=== PATIENT | female | born 2005 | race Two or more races ===

== ENCOUNTER 2024-12-02 01:40 | Emergency (ER) | payer BC, SELFPAY ==
[2024-12-02 01:41] VITALS: BMI 27.1
[2024-12-02 02:03] VITALS: BP 131/85; PULSE 96; RESP 18; TEMP 37.3; O2SAT 97
[2024-12-02] MEDS: ONDANSETRON ODT 4 MG TABRAP PO (02:36)
[2024-12-02] MEDS: DEXAMETHASONE SOD PHOS INJ 10 MG/ML VIAL PO (02:36)
[2024-12-02 04:14] VITALS: BP 120/76; PULSE 76; RESP 16; TEMP 36.7; O2SAT 98
--- NOTE | 2024-12-02 05:38 | PD.EDURI ---
Upper Respiratory Inf. RME/HPI General Chief Complaint: Flu Like Symptoms Stated Complaint: COUGHING/SORE THROAT X 3DAYS Time Seen by Provider: 12/02/24 02:25 Arrival date/time: 12/02/24 01:40 19F with no significant PMH presents to ED with 3 days of cough and sore throat. Patient went to PCP who gave her a Z-kameron w/o relief. Sometimes cough is so bad she has N/V. Limitations: no limitations Related Data Previous Rx's ?Medication ?Instructions ?Recorded amoxicillin 500 mg-potassium 1 tab PO BID #18 tabs 01/14/23 clavulanate 125 mg tablet (Augmentin) Allergies Allergy/AdvReac Type Severity Reaction Status Date / Time No Known Allergies Allergy Verified 01/13/23 23:14 Review of Systems Review of Systems Systems Reviewed: All systems reviewed, normal except as documented Constitutional Constitutional: Reports system reviewed and no additional complaints, except as documented, Denies fever(s) and Denies headache(s) ENT Ears, Nose, Mouth, and Throat: Reports as per HPI, Denies disequilibrium, Denies headache(s) and Reports sore throat Cardiovascular Cardiovascular: Reports system reviewed and no additional complaints, except as documented, Denies chest pain and Denies dyspnea Respiratory Respiratory: Reports system reviewed and no additional complaints, except as documented, Reports as per HPI, Reports cough and Denies dyspnea Gastrointestinal Gastrointestinal: Reports system reviewed and no additional complaints, except as documented, Reports as per HPI, Denies abdominal pain, Reports nausea and Reports vomiting Neurologic Neurologic: Reports system reviewed and no additional complaints, except as documented, Denies confusion, Denies disequilibrium and Denies headache(s) Psychiatric Psychiatric: Denies confusion Past Medical History Past Medical History CARDIAC: Negative Cardiac Disorders or Congestive Heart Failure RESPIRATORY: Negative Chronic Obstructive Pulmonary Disease (COPD) or Asthma GENITOURINARY: Negative Renal Disease ENDOCRINE: Negative Diabetes Mellitus Type 1 or Diabetes Mellitus Type 2 HEMATOLOGIC: Negative Sickle Cell Disease OTHER HISTORY: Negative Hospitalization or Blood Transfusions Social History SMOKING STATUS: Never smoker SUBSTANCE USE: does not use ED Exam General Limitations: Present no limitations General appearance: Present alert and in no apparent distress Head Head exam: Present atraumatic Eye Eye exam: Present normal appearance, PERRL and EOMI ENT ENT exam: Present normal exam, normal oropharynx and mucous membranes moist Neck Neck exam: Present normal inspection, full ROM and trachea midline Chest Chest inspection: Present normal inspection and symmetric chest wall rise Respiratory Respiratory exam: Present normal lung sounds bilaterally Cardiovascular Cardiovascular exam: Present regular rate, normal rhythm and normal heart sounds Abdominal Exam Abdominal exam: Present soft and normal bowel sounds Extremities Exam Extremities exam: Present normal inspection and full ROM Back Exam Back exam: Present normal inspection and full ROM Neurological Exam Neurological exam: Present alert, oriented X3 and CN II-XII intact Psychiatric Psychiatric exam: Present normal affect and normal mood Skin Skin exam: Present warm, dry, intact and normal color Course Quality Measures none Orders Category Date Time Status Bedside Influenza A&B Antigen Test NOW Care 12/02/24 02:25 Completed Dexamethasone Inj [Decadron Inj] Med 12/02/24 02:25 Discontinued 10 mg PO X1 ONE Ondansetron Odt [Zofran Odt] Med 12/02/24 02:25 Discontinued 4 mg PO X1 ONE Vital Signs Vital signs: Vital Signs Temperature 99.2 F 12/02/24 02:03 Pulse Rate 96 12/02/24 02:03 Respiratory Rate 18 12/02/24 02:03 Blood Pressure 131/85 H 12/02/24 02:03 Pulse Oximetry (%) 97 12/02/24 02:03 Oxygen Delivery Method Room Air 12/02/24 02:03 O2 at 97% on RA and WNLs Upper Respiratory Infection MDM Narrative MDM Narrative:: 19F with no significant PMH presents to ED with 3 days of cough and sore throat. Patient went to PCP who gave her a Z-kameron w/o relief. Sometimes cough is so bad she has N/V. Physical exam reveals clear NT and lungs. Normal WOB. Patient is afebrile, calm, and alert. Swabs neg. Meds improved symptoms. Likely viral URI. Patient data External records reviewed:: [facility] previous records Clinical information provided by:: patient Social determinants that could affect healthcare access:: none Patient has the following chronic illnesses:: none How is presenting disease/condition affected by chronic disease/condition?: no chronic disease Evaluation data The following diagnostics were reviewed and interpreted by me:: lab results Lab and/or radiology exams considered but not ordered:: ordered Interpretation Summary: above Medications / Prescriptions Medications or Prescriptions considered but not ordered:: ordered Medication administrations:: Medication Administration History Discontinued Medications Dexamethasone Sodium Phosphate (Dexamethasone Sod Phos Inj 10 Mg/Ml Vial) 10 mg PO X1 ONE Stop: 12/02/24 02:26 Last Admin: 12/02/24 02:36 Dose: 10 mg Documented By: ARETHA Ondansetron HCl (Ondansetron Odt 4 Mg Tabrap) 4 mg PO X1 ONE; Protocol Stop: 12/02/24 02:26 Last Admin: 12/02/24 02:36 Dose: 4 mg Documented By: ARETHA above Consultations Consultation(s) initiated? (list below): No Diagnosis Upper Respiratory Differential Diagnosis: upper respiratory infection, croup, otitis media, sinusitis, viral infection, bronchitis, influenza and pharyngitis Most likely diagnosis given after review of the tests above:: URI Admission Indicated Admission indicated?: not indicated Admission Request Was there a request for admission?: No Disposition Plan Disposition Plan: Discharge Discharge Attestation Discharge Attestation: The patient and all family members were given an opportunity to ask questions and understood the discharge instructions. Discharge instructions specifically effects, indications for sooner follow up or return to the emergency department, and the expected course of current diagnosis. Patient condition: Stable Discharge Plan Plan Patient Disposition: HOME (Self Care) Disposition Comment: Stable Prescriptions/Referrals Prescriptions/Med Rec: No Action amoxicillin-pot clavulanate [Augmentin] 500-125 mg tablet 1 tab PO BID Qty: 18 0RF Referrals: Jorge (PCP),MD Georgi [Primary Care Provider] - In 1 week Problem List Clinical Impression: Upper respiratory infection Patient/Caregiver Discharge Instructions Education Materials: ED URI, Viral, No Abx (Adult) Additional Instructions: Please follow-up with PCP within 24-48 hours and return immediately if symptoms worsen. Ibuprofen/Tylenol can be used simultaneously for greater fever/pain control. Benadryl is good for cough, congestion, and sleep. Lots of nasal suctioning. Keep hydrated. Advance diet as tolerated. Print Language: Ecuadorean Stand Alone Forms: Patient Portal Info Letter PA/DARYL Supervising Physician VIIVAN/DARYL Supervising Physician: Dr. Bal
== END 2024-12-02 04:16 | disposition home or self-care (01) ==
PROVIDERS: Emergency Provider Emergency Medicine; PCP Family Medicine
DX: J06.9 Acute upper respiratory infection, unspecified (principal)
CPT/HCPCS: 87400; 99283; J1100; Q0162

== ENCOUNTER → 2025-03-29 | Outpatient (CLI) | payer BC, SELFPAY ==
[2025-03-29 10:06] LABS: HCG,Qualitative Serum Positive
[2025-03-29 10:14] LABS: Syphilis Nonreactive (Nonreactive)
[2025-03-29 10:26] LABS: Beta HCG,Quantitative 17135 mIU/mL (<5.0)
[2025-03-29 10:31] LABS: Hepatitis A Antibody IgM Non Reactive (Non React); Hepatitis B Core Antibody IgM Non Reactive (Non React); Hepatitis B Surface Antigen Non Reactive (Non React); Hepatitis C Antibody Non Reactive (Non React)
[2025-03-29 13:02] LABS: Chlamydia trachomatis PCR Negative (Not Detect); Neisseria Gonorrhoeae DNA PCR Negative (Not Detect); Trichomonas Negative (Negative)
[2025-03-29 13:33] LABS: HIV (1&2) Antibody Rapid Non-Reactive
== END | disposition home or self-care (01) ==
PROVIDERS: PCP Nurse Practitioner Family; Referring Provider Nurse Practitioner Family; Visit Provider Nurse Practitioner Family
DX: N92.1 Excessive and frequent menstruation with irregular cycle (principal); N91.2 Amenorrhea, unspecified; Z72.51 High risk heterosexual behavior
CPT/HCPCS: 36415; 80074; 84702; 84703; 86703; 86780; 87491; 87591; 87661

== ENCOUNTER 2025-04-11 14:44 | Outpatient (AMB) | payer BC, SELFPAY ==
[2025-04-11 15:39] VITALS: BP 113/76; PULSE 50; RESP 14; TEMP 36.7; O2SAT 98; BMI 29.2
--- NOTE | 2025-04-11 15:39 | OBCLNT_ITS ---
Vital Signs 04/11/25 15:39 Height 1.65 m Height Method Stated Weight 79.832 kg Weight Measurement Method Standing Scale BMI 29.2 BP 113/76 Blood Pressure Source Automatic Cuff Blood Pressure Location Left Upper Arm Position Sitting Respiration 14 Pulse 50 L Pulse Source Monitor Temp 98.1 F Temp Source Oral Pulse Oximetry (%) 98 Oxygen Delivery Method Room Air Allergies/Home Meds Allergies & Medications Allergies No Known Allergies Allergy (Verified 04/11/25 15:40) Medication Reconciliation No Known Home Medications 04/11/25 [History Confirmed 04/11/25] Intake Visit Data Collection New Patient or Established: Established Patient (seen at [facility] within 3 years) Reason for Visit:: INITIAL CARE Seen by Clinical Staff ONLY (RN/MA): No Plum Packer Required: No Do You Feel Safe at Home: Yes Authorities Contacted: N/A PCP or OBGYN visit in last 3 months: Yes Hx Now: Yes Are you currently on any form of Control: No Last menstrual period: 02/09/25 Pain Present Currently: No Pain Scale Used: Bravo-Blackburn/Numerical Pain scale:: 0 Smoking Status Smoking Status: Former smoker Questionnaires Covid-19 Vaccine Questionnaire Has patient been vacinated for Covid-19 Have you been vacinated for Covid-19: Yes PHQ-9 PHQ-2 Over the last 2 weeks, how often have you been bothered by any of the following problems? 1. Little interest or pleasure in doing things: not at all 2. Feeling down, depressed, or hopeless: not at all Total score: 0 PHQ-9 3. Trouble falling or staying asleep, or sleeping too much: Not at all 4. Feeling tired or having little energy: Not at all 5. Poor appetite or overeating: Not at all 6. Feeling bad about yourself - or that you are a failure or have let yourself or your family down: Not at all 7. Trouble concentrating on things, such as reading the newspaper or watching television: Not at all 8. Moving or speaking so slowly that other people could have noticed? - Or the opposite - being so fidgety or restless that you have been moving around a lot more than usual: not at all 9. Thoughts that you would be better off or of hurting yourself in some way: Not at all Total score: 0 Source: Developed by Drs. Antony Ricardo, Emma Gee, Rk De León and colleagues, with an educational isabelle from [employer]. Depression screen completed yes Social History Living Situation History Marital Status: Single Lives With: Family Housing: House Housing Other:: Attending university Tobacco History Smoking Status: Former smoker Second Hand Smoke Exposure: Yes Alcohol History Alcohol Intake: Former Alcohol Intake Frequency: holidays/special occasions only Substance Use History Substance Use: MARIJUANA Domestic Abuse History Do You Feel Safe at Home: Yes History of Present Illness HPI Narrative The patient is a 19-year-old G1, P0 who presents as a new OB. First she was not sure she went to continue the and took a Plan B. She is present with her boyfriend. They do want to continue the . 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 Additional Operations/Hospitalizations (year & reason): Denies Other Relevant History: Anemia Anxiety Headaches OB Initial Visit Menstrual History Menstrual reliability: definite Flow: normal Menstrual regularity: regular Monthly: Yes Age at menarche: 10 On control pills at conception: No Date of positive home test: 03/25/25 Associated symptoms (LMP): Reports nausea, fatigue and breast tenderness Details: LMP 02/09/2025 OB History : 1 Infection History & Risk Evaluation History of STDs: none Genetic Screening & History Genetic Screening/Teratology Counseling - Includes patient, baby's father, or anyone in either family with: 1. Patient's age 35 years or older as of estimated date of delivery: No 2. Thalassemia (American, [place] Citizen, Mediterranean, or Background); MCV less than 80: No 3. Neural Tube Defect (Meningomyelocele, Spina Bifida, or Anencephaly): No 4. Congenital Heart Defect: No 5. Down Syndrome: Yes (MATERNAL UNCLE) 6. Silviano-Sachs (Ashkenazi Rastafarian, Cajun, Malay [place]): No 7. Clementina Disease (Ashkenazi Rastafarian): No 8. Familial Dysautonomia (Ashkenazi Rastafarian): No 9. Sickle Cell Disease or Trait (): No 10. Hemophilia or other blood disorders: No 11. Muscular Dystrophy: No 12. Cystic Fibrosis: No 13. [place]'s Chorea: No 14. Mental Retardation/Autism: Yes (AUTISM MATERNAL COUSIN) 15. Other inherited genetic or chromosomal disorder: No 16. Maternal Metabolic Disorder (EG,TYPE 1 Diabetes, PKU): No 17. Patient or baby's father had a child with defects not listed above: No 18. Recurrent loss or a stillbirth: No 19. Medications (including supplements, vitamins, herbs or otc drugs)/illicit/recreational drugs/alcohol since last menstrual period: No 20. Any other: No Comments/Counseling: Offered NIPT for next visit Infection History 1. Live with someone with TB or exposed to TB: No 2. Rash or viral illness since last menstrual period: No 3. Hepatitis B,C: No Other (see comments) Source: [employer] Review of Systems Review of Systems Narrative Review of Systems: Breast tenderness, fatigue, mild nausea Constitutional Constitutional: Reports fatigue Gastrointestinal Gastrointestinal: Reports nausea Endocrine Endocrine: Reports fatigue Exam Narrative Physical exam: Pap and pelvic deferred. Last Pap was January 2024. No history of abnormal Paps. General Limitations: no limitations General Appearance: alert, in no apparent distress, cooperative and well groomed Neck Neck exam: Present normal inspection, full ROM and trachea midline Chest Chest inspection: Present normal inspection and symmetric chest wall rise Resp Respiratory exam: Present normal lung sounds bilaterally Card Cardiovascular exam: Present regular rate, normal rhythm and normal heart sounds Abdominal Abdominal exam: Present soft and normal bowel sounds Extremities Extremities exam: Present normal inspection and full ROM Psych Psychiatric exam: Present normal affect and normal mood Skin Skin exam: Present warm, dry, intact and normal color Office Procedures OB Clinic LOC & Office Proc's Nursing/Assessment Patient Status: Established Patient OB Clinic Nursing Assessment: Medication Reconciliation, Update PMH in EMR and Vital Signs OB Clinic Coordination of Care: Complex Care and Chronic Disease 1-5, Consent,records obtained, informed consent, Education Simp Pt/Fam, 1 Ins Authorization, Lab and Imaging orders, Results/Orders obtained and Staff clarify orders Special Needs: Heart tones Established Patient Charge Established Patient Point Assignment: 150 Established Patient Point Charge: EP Level 4 (120-155) Assessment & Plan Diagnosis / Problem List (1) : Status: Acute Qualifiers: Weeks of gestation: 8 weeks Qualified Code(s): Z3A.08 - 8 weeks gestation of Plan: labs ordered. Discussed NIPT. Patient has a history of marijuana use encouraged no marijuana use during . Encouraged reading about and getting a book called what to expect when you are expecting. Encouraged healthy eating and taking care of herself with adequate sleep. Patient will take vitamins. Will order official ultrasound. Patient will follow-up in 4 weeks. Additional Plan Follow Up: 4 Weeks
== END 2025-04-11 16:03 | disposition home or self-care (01) ==
LOC: HODSOBC 14:44
PROVIDERS: Supervising Provider Obstetrics & Gynecology; Visit Provider Obstetrics & Gynecology
DX: O09.891 Supervision of other high risk pregnancies, first trimester (principal); F12.90 Cannabis use, unspecified, uncomplicated; O99.321 Drug use complicating pregnancy, first trimester; Z3A.08 8 weeks gestation of pregnancy; Z87.891 Personal history of nicotine dependence
CPT/HCPCS: 99214; G0463

== ENCOUNTER → 2025-04-26 | Outpatient (CLI) | payer BC, MEDICAID, SELFPAY ==
--- NOTE | 2025-04-26 | XR_ITS ---
Examination: Complete OB ultrasound, less than 14 weeks, transabdominal Date and time of exam: April 26 thousand 25, 1302 hrs. Indications: Clinical diagnosis threatened portion Technique: Obstetrical ultrasound images less than 14 weeks performed via transabdominal imaging Findings: A normal shaped single intrauterine gestation is present in the uterus. CRL 3.3 cm corresponds to 10 weeks 2 days gestational age Cardiac motion 166 BPM Ultrasonographic survey of visible and placental structures unremarkable. Amniotic fluid volume appears appropriate for this estimated gestational age. Right ovary 2.6 cm arterial flow. Left ovary 2.5 cm arterial flow Impression: Viable intrauterine gestation 10 weeks 2 days.
--- NOTE | 2025-04-26 | XR_ITS ---
Examination: OB Transvaginal ultrasound of the pelvis, complete Technique: Transvaginal sonographic images pelvis performed using farris scale imaging Exam date and time: April 26, 2025, 13 4 hours Indications: Diagnosis threatened . Findings: Uterus 10.9 cm pole 3.3 cm corresponds to 10 weeks 2 days gestational age. Cardiac motion 166 BPM. Right ovary 3.7 cm arterial flow. Left ovary 2.3 cm arterial flow Impression: Viable intrauterine gestation 10 weeks 2 days.
== END | disposition home or self-care (01) ==
PROVIDERS: PCP Family Medicine; Referring Provider Obstetrics & Gynecology; Visit Provider Obstetrics & Gynecology
DX: O20.0 Threatened abortion (principal); Z3A.10 10 weeks gestation of pregnancy
CPT/HCPCS: 76801; 76817

== ENCOUNTER 2025-05-20 14:14 | Outpatient (AMB) | payer BC, MEDICAID, SELFPAY ==
[2025-05-20 14:44] VITALS: BP 126/84; PULSE 68; RESP 14; TEMP 36.2; O2SAT 98; BMI 29.8
--- NOTE | 2025-05-20 14:44 | AMB.OBVISIT ---
Vital Signs 05/20/25 14:44 Height 1.65 m Height Method Measured Weight 81.25 kg Weight Measurement Method Standing Scale BMI 29.8 BP 126/84 Blood Pressure Source Automatic Cuff Blood Pressure Location Left Upper Arm Position Sitting Respiration 14 Pulse 68 Pulse Source Monitor Temp 97.1 F Temp Source Oral Pulse Oximetry (%) 98 Oxygen Delivery Method Room Air Allergies/Home Meds Allergies & Medications Allergies No Known Allergies Allergy (Verified 05/20/25 14:45) Medication Reconciliation No Known Home Medications 04/11/25 [History Confirmed 05/20/25] Intake Visit Data Collection New Patient or Established: Established Patient (seen at [facility] within 3 years) Reason for Visit:: CARE Seen by Clinical Staff ONLY (RN/MA): No Boiler Tender Required: No Do You Feel Safe at Home: Yes Authorities Contacted: N/A PCP or OBGYN visit in last 3 months: Yes Hx Now: Yes Are you currently on any form of Control: No Pain Present Currently: No Pain Scale Used: Bravo-Blackburn/Numerical Pain scale:: 0 Smoking Status Smoking Status: Former smoker Questionnaires Covid-19 Vaccine Questionnaire Has patient been vacinated for Covid-19 Have you been vacinated for Covid-19: No PHQ-9 PHQ-2 Over the last 2 weeks, how often have you been bothered by any of the following problems? 1. Little interest or pleasure in doing things: not at all 2. Feeling down, depressed, or hopeless: not at all Total score: 0 PHQ-9 3. Trouble falling or staying asleep, or sleeping too much: Not at all 4. Feeling tired or having little energy: Not at all 5. Poor appetite or overeating: Not at all 6. Feeling bad about yourself - or that you are a failure or have let yourself or your family down: Not at all 7. Trouble concentrating on things, such as reading the newspaper or watching television: Not at all 8. Moving or speaking so slowly that other people could have noticed? - Or the opposite - being so fidgety or restless that you have been moving around a lot more than usual: not at all 9. Thoughts that you would be better off or of hurting yourself in some way: Not at all Total score: 0 Source: Developed by Emma CannonW. Gerard, Rk De León and colleagues, with an educational isabelle from [employer]. 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 This was an unexpected but her and her boyfriend are excited. OB Ultrasound Indication Indication: Size and dates OB Ultrasound Ultrasound technique: transabdominal Gestational sac assessment: Presence, location, size, shape: Live intrauterine measuring 13 weeks with cardiac activity noted at 245 bpm Care OB Visit Log OB Flowsheet Initial Weight: Not Recorded Date <del>?</del> EGA Weight BP Alb Glu CTX Pres Fundal ht FHR Mov Dilation Station Effacement Hx Notes Visit Note 05/20/25 <del>?</del> 14w 2d 81.25 kg 126/84 14 147 Patient presents with her mother and her boyfriend. No bleeding or pressure. They are having a gender reveal green party in about 3 weeks. Normal NIPT and all labs reviewed with the patient. All questions answered. ILDA Calculator Estimated Delivery Date Method Current WG Current Estimate 11/16/25 LMP (Certain) 14w 2d Other Estimates 11/20/25 Ultrasound #1 13w 5d Expected Delivery Route/Plan 19-year-old G1, P0 Specific Issue/Plans labs [facility]: AB+ antibody/ negative /RPR nonreactive/hepatitis B surface antigen negative /rubella immune/ RPR nonreactive/ hepatitis C negative /HIV negative/ GC negative/ Chlamydia negative/ hemoglobin 14.2 hematocrit 43.2 Urine culture negative. NIPT 46 XY. SMA negative. Cystic fibrosis negative. Notes Visit Date: 05/20/25 Last Updated by: Hortencia Levin (OB Clinic)MD Patient denies bleeding. No dysuria. She is getting her energy back. Gender is a surprise for now. Normal NIPT. She had an ultrasound at [facility] 04/26/2025 revealing a live IUP measuring 10 weeks 2 days with an EDC of 11/20/2025. Office Procedures OB Clinic LOC & Office Proc's Nursing/Assessment Patient Status: Established Patient OB Clinic Nursing Assessment: Medication Reconciliation, Update PMH in EMR and Vital Signs OB Clinic Coordination of Care: Complex Care and Chronic Disease 1-5, Consent,records obtained, informed consent, Education Simp Pt/Fam, Lab and Imaging orders, Results/Orders obtained and Staff clarify orders Special Needs: Heart tones Established Patient Charge Established Patient Point Assignment: 135 Established Patient Point Charge: EP Level 4 (120-155) Assessment & Plan Diagnosis / Problem List (1) : Status: Acute Qualifiers: Weeks of gestation: 13 weeks Qualified Code(s): Z3A.13 - 13 weeks gestation of
== END 2025-05-20 16:02 | disposition home or self-care (01) ==
LOC: HODSOBC 14:14
PROVIDERS: PCP Family Medicine; Referring Provider Family Medicine; Supervising Provider Obstetrics & Gynecology; Visit Provider Obstetrics & Gynecology
DX: Z34.02 Encounter for supervision of normal first pregnancy, second trimester (principal); Z3A.14 14 weeks gestation of pregnancy; Z87.891 Personal history of nicotine dependence
CPT/HCPCS: 99214; G0463

== ENCOUNTER 2025-06-17 14:56 | Outpatient (AMB) | payer BC, MEDICAID, SELFPAY ==
[2025-06-17 15:11] VITALS: BP 119/82; PULSE 77; RESP 14; TEMP 36.5; O2SAT 98; BMI 30.4
--- NOTE | 2025-06-17 15:11 | OBCLNT_ITS ---
Vital Signs 06/17/25 15:11 Height 1.65 m Height Method Stated Weight 83.064 kg Weight Measurement Method Standing Scale BMI 30.4 BP 119/82 Blood Pressure Source Automatic Cuff Blood Pressure Location Left Upper Arm Position Sitting Respiration 14 Pulse 77 Pulse Source Monitor Temp 97.7 F Temp Source Oral Pulse Oximetry (%) 98 Oxygen Delivery Method Room Air Allergies/Home Meds Allergies & Medications Allergies No Known Allergies Allergy (Verified 06/17/25 15:12) Medication Reconciliation No Known Home Medications 04/11/25 [History Confirmed 06/17/25] Intake Visit Data Collection New Patient or Established: Established Patient (seen at [facility] within 3 years) Reason for Visit:: CARE Seen by Clinical Staff ONLY (RN/MA): No 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: No Do You Feel Safe at Home: Yes Authorities Contacted: N/A PCP or OBGYN visit in last 3 months: Yes Hx Now: Yes Are you currently on any form of Control: No Pain Present Currently: Yes Pain Location: Abdomen (LOWER ABDOMEN) Pain Scale Used: Bravo-Blackburn/Numerical Pain scale:: 7 Smoking Status Smoking Status: Former smoker Immunizations Flu Vaccine in the Last 12 Months: No Flu Vaccine Exclusion Criteria: No Exclusion Criteria Questionnaires Covid-19 Vaccine Questionnaire Has patient been vacinated for Covid-19 Have you been vacinated for Covid-19: Yes PHQ-9 PHQ-2 Over the last 2 weeks, how often have you been bothered by any of the following problems? 1. Little interest or pleasure in doing things: not at all 2. Feeling down, depressed, or hopeless: not at all Total score: 0 PHQ-9 3. Trouble falling or staying asleep, or sleeping too much: Not at all 4. Feeling tired or having little energy: Not at all 5. Poor appetite or overeating: Not at all 6. Feeling bad about yourself - or that you are a failure or have let yourself or your family down: Not at all 7. Trouble concentrating on things, such as reading the newspaper or watching television: Not at all 8. Moving or speaking so slowly that other people could have noticed? - Or the opposite - being so fidgety or restless that you have been moving around a lot more than usual: not at all 9. Thoughts that you would be better off or of hurting yourself in some way: Not at all Total score: 0 Source: Developed by Drs. Antony Ricardo, Emma Gee, Rk De León and colleagues, with an educational isabelle from [employer]. 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 No bleeding or pressure. They are having a gender reveal democrat in about 3 weeks. Normal NIPT and all labs reviewed with the patient. All questions answered. 06/17/25 -?-?-?-?-?-?-?-?-?-?-?-?- 18w 2d 83.064 kg 119/82 18 145 active +Flutter, No VB or LOF Ordered SS at [facility] ILDA Calculator Estimated Delivery Date Method Current WG Current Estimate 11/16/25 LMP (Certain) 19w 0d Other Estimates 11/20/25 Ultrasound #1 18w 3d Expected Delivery Route/Plan 19-year-old G1, P0 Specific Issue/Plans labs [facility]: AB+ antibody/ negative /RPR nonreactive/hepatitis B surface antigen negative /rubella immune/ RPR nonreactive/ hepatitis C negative /HIV negative/ GC negative/ Chlamydia negative/ hemoglobin 14.2 hematocrit 43.2 Urine culture negative. NIPT 46 XY. SMA negative. Cystic fibrosis negative. Notes Visit Date: 06/17/25 Last Updated by: Hortencia Levin (OB Clinic)MD Ordered structural survey at [facility]. Doing well. Visit Date: 05/20/25 Last Updated by: Hortencia Levin (OB Clinic)MD Patient denies bleeding. No dysuria. She is getting her energy back. Gender is a surprise for now. Normal NIPT. She had an ultrasound at [facility] 04/26/2025 revealing a live IUP measuring 10 weeks 2 days with an EDC of 11/20/2025. Office Procedures OBC Clinic LOC & Office Proc's Nursing/Assessment Patient Status: Established Patient OB Clinic Nursing Assessment: Medication Reconciliation, Update PMH in EMR and Vital Signs OB Clinic Coordination of Care: Complex Care and Chronic Disease 1-5, Consent,records obtained, informed consent, Education Simp Pt/Fam, 1 Ins Authorization, Lab and Imaging orders, Results/Orders obtained and Staff clarify orders Special Needs: Heart tones Established Patient Charge Established Patient Point Assignment: 150 Established Patient Point Charge: EP Level 4 (120-155) Assessment & Plan Diagnosis / Problem List (1) : Status: Acute Qualifiers: Weeks of gestation: 18 weeks Qualified Code(s): Z3A.18 - 18 weeks gestation of Additional Plan Follow Up: 4 Weeks
== END 2025-06-17 16:00 | disposition home or self-care (01) ==
LOC: HODSOBC 14:56
PROVIDERS: PCP Family Medicine; Referring Provider Family Medicine; Supervising Provider Obstetrics & Gynecology; Visit Provider Obstetrics & Gynecology
DX: Z34.02 Encounter for supervision of normal first pregnancy, second trimester (principal); Z3A.18 18 weeks gestation of pregnancy
CPT/HCPCS: 99214; G0463

== ENCOUNTER 2025-07-21 11:16 | Outpatient (AMB) | payer BC, MEDICAID, SELFPAY ==
[2025-07-21 11:23] VITALS: BP 108/74; PULSE 86; RESP 16; TEMP 36.4; O2SAT 97; BMI 31.8
--- NOTE | 2025-07-21 11:23 | AMB.OBPNC ---
Vital Signs 07/21/25 11:23 Height 1.65 m Height Method Stated Weight 86.75 kg Weight Measurement Method Standing Scale BMI 31.8 BP 108/74 Blood Pressure Source Automatic Cuff Blood Pressure Location Right Upper Arm Position Sitting Respiration 16 Pulse 86 Pulse Source Monitor Temp 97.5 F Temp Source Temporal Artery Scan Pulse Oximetry (%) 97 Oxygen Delivery Method Room Air Allergies/Home Meds Allergies & Medications Allergies No Known Allergies Allergy (Verified 07/21/25 11:25) Medication Reconciliation vitamin-ferrous fumarate 28 mg iron-folic acid 800 mcg tablet ( Vitamins with Minerals) 1 tab PO QDAY #60 tabs 06/22/25 [Rx Confirmed 07/21/25] Immunizations Immunizations Flu Vaccine in the Last 12 Months: No Flu Vaccine Exclusion Criteria: Refused by Patient Care OB Visit Log OB Flowsheet Initial Weight: Not Recorded Date <del>?</del> EGA Weight BP Alb Glu CTX Pres Fundal ht FHR Mov Dilation Station Effacement Hx Notes Visit Note 05/20/25 <del>?</del> 14w 2d 81.25 kg 126/84 14 147 Patient presents with her mother and her boyfriend. No bleeding or pressure. They are having a gender reveal green party in about 3 weeks. Normal NIPT and all labs reviewed with the patient. All questions answered. 06/17/25 <del>?</del> 18w 2d 83.064 kg 119/82 18 145 active +Flutter, No VB or LOF Ordered SS at [facility] 07/21/25 <del>?</del> 23w 1d 86.75 kg 108/74 23 144 active Had a Us done 07/11/[address] [facility] and is appropriate ILDA Calculator Estimated Delivery Date Method Current WG Current Estimate 11/16/25 LMP (Certain) 23w 2d Other Estimates 11/20/25 Ultrasound #1 22w 5d Expected Delivery Route/Plan 19-year-old G1, P0 Specific Issue/Plans labs [facility]: AB+ antibody/ negative /RPR nonreactive/hepatitis B surface antigen negative /rubella immune/ RPR nonreactive/ hepatitis C negative /HIV negative/ GC negative/ Chlamydia negative/ hemoglobin 14.2 hematocrit 43.2 Urine culture negative. NIPT 46 XY. SMA negative. Cystic fibrosis negative. Notes Visit Date: 07/21/25 Last Updated by: Mya Lomeli MD she will take the CBC/ RPR and one hour GTT now to be done between 24 to 28 weeks she feels swollen in genital area with coitus nd also on sitting for long time and can use a belt/ support and also walk after sitting for 2 hours for 10 to 15 minutes she is wanting an anatomy scan and will order Visit Date: 06/17/25 Last Updated by: Hortencia Levin (OB Clinic)MD Ordered structural survey at [facility]. Doing well. Visit Date: 05/20/25 Last Updated by: Hortencia Levin (OB Clinic)MD Patient denies bleeding. No dysuria. She is getting her energy back. Gender is a surprise for now. Normal NIPT. She had an ultrasound at [facility] 04/26/2025 revealing a live IUP measuring 10 weeks 2 days with an EDC of 11/20/2025. Office Procedures OBC Clinic LOC & Office Proc's Nursing/Assessment Patient Status: Established Patient OB Clinic Nursing Assessment: Medication Reconciliation, Update PMH in EMR and Vital Signs OB Clinic Coordination of Care: Complex Care and Chronic Disease 1-5, Education Complex Pt/Fam, Consent,records obtained, informed consent, Lab and Imaging orders, Results/Orders obtained and Staff clarify orders Special Needs: Heart tones Established Patient Charge Established Patient Point Assignment: 140 Established Patient Point Charge: EP Level 4 (120-155) Assessment & Plan Diagnosis / Problem List (1) : Status: Acute Qualifiers: Weeks of gestation: 18 weeks Qualified Code(s): Z3A.18 - 18 weeks gestation of Plan: at 23 .1 weeks with normal PNC (2) Genital swelling: Status: Acute Plan: not constant , related to activity / maternity belt/ walking advised (3) 23 weeks gestation of : Status: Acute Additional Plan CBc/ RPR/One hour GTT ordered / at 23.1 weeks labs [facility]: AB+ antibody/ negative /RPR nonreactive/hepatitis B surface antigen negative /rubella immune/ RPR nonreactive/ hepatitis C negative /HIV negative/ GC negative/ Chlamydia negative/ hemoglobin 14.2 hematocrit 43.2 Urine culture negative. NIPT 46 XY. SMA negative. Cystic fibrosis negative. Follow Up: 4 Weeks
== END 2025-07-21 13:10 | disposition home or self-care (01) ==
LOC: HODSOBC 11:16
PROVIDERS: PCP Family Medicine; Referring Provider Family Medicine; Supervising Provider Obstetrics & Gynecology; Visit Provider Obstetrics & Gynecology
DX: O09.892 Supervision of other high risk pregnancies, second trimester (principal); O99.891 Other specified diseases and conditions complicating pregnancy; R22.9 Localized swelling, mass and lump, unspecified; Z3A.23 23 weeks gestation of pregnancy; Z28.21 Immunization not carried out because of patient refusal
CPT/HCPCS: 99214; G0463

== ENCOUNTER 2025-08-14 15:28 | Observation (INO) | payer BC, MEDICAID, SELFPAY ==
[2025-08-14] VITALS (19 sets, daily range): BP systolic 117; BP diastolic 75; PULSE 82–100; RESP 17–100; TEMP 36.9; O2SAT 98–100; BMI 33.3
--- NOTE | 2025-08-14 15:53 | XR_ITS ---
Examination: OB Transvaginal ultrasound of the pelvis, limited Technique: Transvaginal sonographic images pelvis performed using farris scale imaging Exam date and time: August 14, 2025, 1650 hours INDICATIONS: Labor evaluation today, pelvic cramping, unknown cervical length. FINDINGS: Cervix 4.2 cm closed IMPRESSION: Cervix 4.2 cm closed
[2025-08-14] MEDS: RINGERS LACTATED 1000 ML 1,000 ML 999 ML IV (16:10)
== END 2025-08-14 17:34 | disposition home or self-care (01) ==
PROVIDERS: Admitting Provider Obstetrics & Gynecology; PCP Obstetrics & Gynecology; Visit Provider Obstetrics & Gynecology
DX: O26.892 Other specified pregnancy related conditions, second trimester (principal); Z3A.26 26 weeks gestation of pregnancy; R10.9 Unspecified abdominal pain; M54.9 Dorsalgia, unspecified; R19.7 Diarrhea, unspecified
CPT/HCPCS: 59025; 59899; 76817; J7120

== ENCOUNTER 2025-08-16 15:26 | Outpatient (AMB) | payer BC, MEDICAID, SELFPAY ==
--- NOTE | 2025-08-16 15:28 | OBCLNT_ITS ---
Vital Signs 08/16/25 15:32 Height 1.63 m Height Method Stated Weight 88.224 kg Weight Measurement Method Standing Scale BMI 33.3 BP 116/81 Blood Pressure Source Automatic Cuff Blood Pressure Location Left Upper Arm Position Sitting Respiration 16 Pulse 82 Pulse Source Monitor Temp 97.7 F Temp Source Oral Pulse Oximetry (%) 99 Oxygen Delivery Method Room Air Allergies/Home Meds Allergies & Medications Allergies No Known Allergies Allergy (Verified 08/16/25 15:33) Medication Reconciliation vitamin-ferrous fumarate 28 mg iron-folic acid 800 mcg tablet ( Vitamins with Minerals) 1 tab PO QDAY #60 tabs 06/22/25 [Rx Confirmed 08/16/25] Immunizations Immunizations Flu Vaccine in the Last 12 Months: Yes Flu Vaccine Exclusion Criteria: Already Received Care OB Visit Log OB Flowsheet Initial Weight: Not Recorded Date -?-?-?-?-?-?-?-?-?-?-?-?- EGA Weight BP Alb Glu CTX Pres Fundal ht FHR Mov Dilation Station Effacement Hx Notes Visit Note 05/20/25 -?-?-?-?-?-?-?-?-?-?-?-?- 14w 2d 81.25 kg 126/84 14 147 Patient presents with her mother and her boyfriend. No bleeding or pressure. They are having a gender reveal republican in about 3 weeks. Normal NIPT and all labs reviewed with the patient. All questions answered. 06/17/25 -?-?-?-?-?-?-?-?-?-?-?-?- 18w 2d 83.064 kg 119/82 18 145 active +Flutter, No VB or LOF Ordered SS at [facility] 07/21/25 -?-?-?-?-?-?-?-?-?-?-?-?- 23w 1d 86.75 kg 108/74 23 144 active Had a Us done 07/11/2025 at [facility] and is appropriate 08/16/25 -?-?-?-?-?-?-?-?-?-?-?-?- 26w 6d 88.224 kg 116/81 28 145 active - Mandy Obando is a 1 para 0 at 26 weeks and 6 days gestation with an estimated due date of November 16, 2025, presenting for routine care. - This is her first visit with Dr. Espitia , having previously seen Dr. Levin and Dr. Lomeli. - She reports the has been goi ng really, really good overall with an active baby. - She denies contractions or other pregn grace-related issues. - She went to the emergency room a coupl e days ago for active diarrhea with associated cramping and fever. - She became dehydrated and received o ne and a half IV fluid bags. - She reports feeling absolutely bett er now that the illness has resolved. - She completed her glucose tolerance te st today at [facility]. - She reports taking her vitami ns regularly. - She describes staying physically activ e, moving around frequently without restrictions. - Await glucose test results from [facility], will call patient if abnormal - Referral for level 2 ultrasound in [place] with Dr. Farnsworth for detailed anatomy scan - Continue vitamins - Maintain physical activity with 10-15 minutes of active walking daily - Follow-up appointment in 4 weeks ILDA Calculator Estimated Delivery Date Method Current WG Current Estimate 11/16/25 LMP (Certain) 28w 6d Other Estimates 11/20/25 Ultrasound #1 28w 2d Expected Delivery Route/Plan 19-year-old G1, P0 Specific Issue/Plans labs [facility]: AB+ antibody/ negative /RPR nonreactive/hepatitis B surface antigen negative /rubella immune/ RPR nonreactive/ hepatitis C negative /HIV negative/ GC negative/ Chlamydia negative/ hemoglobin 14.2 hematocrit 43.2 Urine culture negative. NIPT 46 XY. SMA negative. Cystic fibrosis negative. Notes Visit Date: 07/21/25 Last Updated by: Mya Lomeli MD she will take the CBC/ RPR and one hour GTT now to be done between 24 to 28 weeks she feels swollen in genital area with coitus nd also on sitting for long time and can use a belt/ support and also walk after sitting for 2 hours for 10 to 15 minutes she is wanting an anatomy scan and will order Visit Date: 06/17/25 Last Updated by: Hortencia Levin (OB Clinic)MD Ordered structural survey at [facility]. Doing well. Visit Date: 05/20/25 Last Updated by: Hortencia Levin (OB Clinic)MD Patient denies bleeding. No dysuria. She is getting her energy back. Gender is a surprise for now. Normal NIPT. She had an ultrasound at [facility] 04/26/2025 revealing a live IUP measuring 10 weeks 2 days with an EDC of 11/20/2025. Office Procedures OBC Clinic LOC & Office Proc's Nursing/Assessment Patient Status: Established Patient OB Clinic Nursing Assessment: Medication Reconciliation, Update PMH in EMR and Vital Signs OB Clinic Coordination of Care: Complex Care and Chronic Disease 1-5, Consent,records obtained, informed consent, Education Simp Pt/Fam, 1 Ins Authorization, Lab and Imaging orders, Results/Orders obtained and Staff clarify orders Special Needs: Heart tones Established Patient Charge Established Patient Point Assignment: 150 Established Patient Point Charge: EP Level 4 (120-155) Assessment & Plan Diagnosis / Problem List (1) Supervision of high risk , unspecified, second trimester: Status: Acute Plan Problem List - at 26 weeks 6 days gestation - Gastroenteritis with dehydration Assessment 26-week 6-day 1 para 0 with recent emergency department visit for gastroenteritis presenting with diarrhea, associated cramping, fever, and dehydration requiring IV fluid resuscitation, now resolved. Patient reports active movement and heart rate is 142 bpm. Glucose tolerance test performed today with results pending. Patient is otherwise doing well with no current contractions or -related concerns. Plan - Await glucose test results from [facility], will call patient if abnormal - Referral for level 2 ultrasound in [place] with Dr[address] Farnsworth for detailed anatomy scan - Continue vitamins - Maintain physical activity with 10-15 minutes of active walking daily - Follow-up appointment in 4 weeks 1. Progress Reviewed gestational age (26 weeks 6 days), growth, and heart rate (142 bpm). Planned frequent visits (every 4 weeks). 2. Instructed patient to monitor movements and report decreases immediately. 3. Testing Counseled on routine third-trimester labs per guidelines. Patient completed glucose tolerance test today with results pending. Discussed potential need for ultrasound or monitoring based on risk factors. Referred for level 2 anatomy ultrasound in [place] with Dr. Myers. 4. Preeclampsia Precaution Educated on preeclampsia signs: severe headache, vision changes, right upper quadrant pain, sudden swelling. Advised urgent reporting of symptoms and discussed blood pressure monitoring if high risk. 5. Labor Precautions Reviewed labor signs: regular contractions, pelvic pressure, back pain, bleeding, or fluid leakage. Instructed to seek immediate care for these symptoms. Patient recently experienced cramping with diarrheal illness but resolved after IV hydration. 6. Lifestyle and Delivery Preparation Reinforced vitamins, nutrition, and safe activity. Encouraged 10-15 minutes of active walking daily and maintaining physical activity without restrictions. Discussed plan, pain management, and . Advised on labor preparation (e.g., hospital bag) and expectations. 7. Psychosocial Support Assessed emotional well-being and offered resources for mental health or parenting support.
[2025-08-16 15:32] VITALS: BP 116/81; PULSE 82; RESP 16; TEMP 36.5; O2SAT 99; BMI 33.3
== END 2025-08-16 15:40 | disposition home or self-care (01) ==
LOC: HODSOBC 15:26
PROVIDERS: PCP Family Medicine; Referring Provider Family Medicine; Supervising Provider Obstetrics & Gynecology; Visit Provider Obstetrics & Gynecology
DX: O09.892 Supervision of other high risk pregnancies, second trimester (principal); Z3A.26 26 weeks gestation of pregnancy
CPT/HCPCS: 99214; G0463